=== PATIENT | female | born 1960 | race Caucasian/White ===

== ENCOUNTER 2016-05-15 14:20 | Emergency (ER) | payer SELFPAY ==
[~2016-05-15] VITALS: Ht 154.9 cm; Wt 63.5 kg
[2016-05-15 14:29] VITALS: BP 120/74; PULSE 98; RESP 16; TEMP 97.1; O2SAT 93
[2016-05-15] MEDS ORDERED: GABA300C5 PO (14:53)
[2016-05-15] MEDS ORDERED: LEVO75TA3 PO (14:53)
[2016-05-15] MEDS ORDERED: ATOR1TAB18 PO (14:53)
[2016-05-15] MEDS ORDERED: ESTR0.752 PO (14:53)
[2016-05-15] MEDS ORDERED: DULO1CAP3 PO (14:53)
--- NOTE | 2016-05-15 14:59 | PD ---
HPI Chief Complaint: Fall Time Seen by Provider: 14:55 Travel History International Travel<30 days: No Contact w/Intl Traveler<30days: No Traveled to known affect area: No History of Present Illness HPI 55-year-old female that presents to the ED for evaluation of possible injury to the right arm. Patient/suffer a CVA years ago and she has deficits including communication as well as right arm weakness as well as right leg weakness. She cannot move the arm at all. She does have some trouble walking but she is able to ambulate. 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 They're hoping that the symptoms will go away but she does have some significant bruising and swelling noted on the right arm. Patient complains of pain to the humerus, elbow, forearm. She denies any numbness or weakness that is new. Of note patient cannot move the arm already. She states having some discomfort. She denies any blood thinners. No head injury. No other injuries reported. No pain anywhere else. Allergies to codeine. Pain is moderate as she cannot give me a number secondary to her speech impediment secondary to her CVA. PFSH Past Medical History Depression: Yes High Cholesterol: Yes Cerebrovascular Accident: Yes Diminished Hearing: No Thyroid Disease: Yes Influenza Vaccination: No ?: Not Past Surgical History Hysterectomy: Yes Neurologic Surgery: Yes (BACK) Social History Alcohol Use: No Tobacco Use: Yes (1 PPD) Allergies-Medications (Allergen,Severity, Reaction): Coded Allergies: Codeine (Verified Adverse Reaction, Mild, ITCHING, 05/15/16) Reported Meds & Prescriptions Reported Meds & Active Scripts Active Lortab (Hydrocodone-Acetaminophen) 5-325 Mg Tab 1 Tab PO Q6H PRN Reported Atorvastatin (Atorvastatin Calcium) 80 Mg Tab 80 Mg PO HS Gabapentin 300 Mg Cap 300 Mg PO DAILY Duloxetine DR (Duloxetine HCl) 60 Mg Capdr 60 Mg PO DAILY Levothyroxine (Levothyroxine Sodium) 75 Mcg Tab 75 Mcg PO DAILY Estropipate 0.75 Mg Tab 0.75 Mg PO DAILY Review of Systems Except as stated in HPI: all other systems reviewed are Neg Physical Exam Narrative GENERAL: SKIN: Warm and dry. HEAD: Atraumatic. Normocephalic. EYES: Pupils equal and round. No scleral icterus. No injection or drainage. ENT: No nasal bleeding or discharge. Mucous membranes pink and moist. NECK: Trachea midline. No JVD. CARDIOVASCULAR: Regular rate and rhythm. RESPIRATORY: No accessory muscle use. Clear to auscultation. Breath sounds equal bilaterally. GASTROINTESTINAL: Abdomen soft, non-tender, nondistended. Hepatic and splenic margins not palpable. MUSCULOSKELETAL: Extremities without clubbing, cyanosis, or edema. No obvious deformities. Patient has pain and swelling noted on the anterior aspect of the right elbow. Patient does have swelling and bruising noted. No obvious deformity noted on the bones. Pupils pulses bilaterally. Patient does have some passive movement and pain with it but she cannot actively move it at all. She has good capillary refills of the digits. Some sensation deficits noted but this appears to be chronic. NEUROLOGICAL: Awake and alert. No obvious cranial nerve deficits. Motor grossly within normal limits. Five out of 5 muscle strength in the arms and legs. Normal speech. PSYCHIATRIC: Appropriate mood and affect; insight and judgment normal. Data Data Last Documented VS Vital Signs Date Time Temp Pulse Resp B/P Pulse Ox O2 Delivery O2 Flow Rate FiO2 05/15/16 14:29 97.1 98 16 120/74 93 Orders Forearm (2vws) (05/15/16 ) Humerus (Min 2vws) (05/15/16 14:50) Ice/Cold Pack (05/15/16 14:50) Acetamin-Hydrocod 325-5 Mg ([place] 5-325 (05/15/16 15:30) Elbow, Limited (Ap&Lat) (05/15/16 14:50) MDM Medical Decision Making Medical Screen Exam Complete: Yes Emergency Medical Condition: Yes Medical Record Reviewed: Yes Interpretation(s) X-ray of the right humerus show no sign of bony injury X-ray of the right elbow show no sign of bony injury X-ray of the right forearm show no sign of bony injury Differential Diagnosis Fracture versus sprain versus strain versus bruise versus contusion Narrative Course 55-year-old female that presents to the ED for evaluation of right arm injury. Patient was properly examined and was found to have signs and symptoms concerning for fracture. X-rays were done. X-rays showed no sign of bony injuries. Patient was reassured. Patient was given a short prescription for Lortab for pain. Told to take Tylenol or Motrin for pain. Ice or warm compresses. See ED worsening symptoms. Follow up with PCP. Diagnosis Primary Impression: Contusion of arm, right Qualified Code: S40.021A - Contusion of arm, right, initial encounter Patient Instructions: General Instructions Additional Instructions: Take medications as prescribed. Follow-up with PCP. See ED for any worsening symptoms. Do not drink or drive while taking pain medication. Apply ice or heat as needed for pain Med/Other Pt SpecificInfo: Prescription(s) given Scripts Hydrocodone-Acetaminophen (Lortab)5-325 Mg Tab1 Tab PO Q6H PRN (PAIN) #10 TAB Prov:Jorge L Lindsey MD 05/15/16 Disposition: 01 DISCHARGE HOME Condition: Stable Gonzales Gonzalez May 15, 2016 14:59
[2016-05-15] MEDS ORDERED: ACETAMINOPHEN/HYDROcodone 325 MG/5 MG TAB PO ONE (15:30)
--- NOTE | 2016-05-15 15:32 | RADHPO ---
EXAM DATE/TIME: 05/15/2016 15:10 [facility] COMPARISON: FOREARM RIGHT (2VWS), May 15, 2016, 15:03. INDICATIONS : Right elbow pain post fall 4 days ago MEDICAL HISTORY : Stroke. SURGICAL HISTORY : None. ENCOUNTER: Initial ACUITY: 4 - 6 days PAIN SCORE: 10/10 LOCATION: Right entire elbow FINDINGS: Two view examination of the right elbow demonstrates no soft tissue swelling, joint effusion, fractur e or dislocation. Bony mineralization is normal. CONCLUSION: 1. Negative examination. Tommie Barr MD on May 15, 2016 at 15:30 Board Certified Radiologist. This report was verified electronically.
--- NOTE | 2016-05-15 15:33 | RADHPO ---
EXAM DATE/TIME: 05/15/2016 15:15 [facility] COMPARISON: ELBOW RIGHT LIMITED (AP & LAT), May 15, 2016, 15:10. INDICATIONS : Right upper arm pain post fall 4 days ago MEDICAL HISTORY : Stroke. SURGICAL HISTORY : None. ENCOUNTER: Initial ACUITY: 4 - 6 days PAIN SCORE: 7/10 LOCATION: Right mid-shaft humerus FINDINGS: Two view examination of the right humerus demonstrates no evidence of fracture or dislocation. Bony mineralization is normal. The soft tissue structures are intact. CONCLUSION: 1. No acute abnormality of the humerus identified. Tommie Barr MD on May 15, 2016 at 15:31 Board Certified Radiologist. This report was verified electronically.
--- NOTE | 2016-05-15 15:38 | RADHPO ---
EXAM DATE/TIME: 05/15/2016 15:03 [facility] COMPARISON: No previous studies available for comparison. INDICATIONS : Right forearm pain post fall four days ago MEDICAL HISTORY : None. SURGICAL HISTORY : None. ENCOUNTER: Initial ACUITY: 4 - 6 days PAIN SCORE: 10/10 LOCATION: Right proximal forearm FINDINGS: The osseous structures are intact. There is some swelling of the soft tissues just distal to the elbo w. CONCLUSION: No acute fracture seen. There is soft tissue swelling as above. Tommie Barr MD on May 15, 2016 at 15:36 Board Certified Radiologist. This report was verified electronically.
[2016-05-15] MEDS ORDERED: HYDR-3533 PO (15:41)
== END 2016-05-15 16:02 | disposition home or self-care (01) ==
LOC: PHEFT 14:20
DX: S50.01XA Contusion of right elbow, initial encounter (principal); M79.631 Pain in right forearm; M79.621 Pain in right upper arm; I69.351 Hemiplegia and hemiparesis following cerebral infarction affecting right dominant side; I69.328 Other speech and language deficits following cerebral infarction; E78.00 Pure hypercholesterolemia, unspecified; F17.210 Nicotine dependence, cigarettes, uncomplicated; W19.XXXA Unspecified fall, initial encounter; Y93.9 Activity, unspecified; Y92.9 Unspecified place or not applicable
CPT/HCPCS: 73060; 73070; 73090; 99283

== ENCOUNTER 2016-06-24 13:40 | Emergency (ER) | payer OTHER ==
[~2016-06-24] VITALS: Ht 154.9 cm; Wt 59.0 kg
[~2016-06-24 13:40] MED LIST: ATOR1TAB18 PO; DULO1CAP3 PO; ESTR0.752 PO; GABA300C5 PO; HYDR-3533 PO; LEVO75TA3 PO
[2016-06-24 14:25] VITALS: BP 112/72; PULSE 86; RESP 18; TEMP 98; O2SAT 98
[2016-06-24] MEDS ORDERED: METH10TA PO (14:32)
[2016-06-24] MEDS ORDERED: OXYC-396 PO (14:32)
[2016-06-24] MEDS ORDERED: CLON1TAB PO (14:32)
[2016-06-24] MEDS ORDERED: CLON0.5T PO (14:32)
--- NOTE | 2016-06-24 15:08 | PD ---
HPI Chief Complaint: Medication Refill Request Time Seen by Provider: 14:57 Travel History International Travel<30 days: No Contact w/Intl Traveler<30days: No Traveled to known affect area: No History of Present Illness HPI 55-year-old female was brought in by family member requesting refill of pain medication including methadone and oxycodone. Patient status post CVA and back surgery on chronic pain medication. Patient recently moved to [facility] and does not have any local physician to refill her pain medication. Patient status post CVA with chronic pain on the right arm and status post back surgery on chronic pain medication. Family member reported no new injury. Family members reported no new medical problem. Patient does not vocalize any complaints. Information provided by family member. History Social History Alcohol Use: No Tobacco Use: Yes (1 PPD) Allergies-Medications (Allergen,Severity, Reaction): Coded Allergies: Codeine (Verified Adverse Reaction, Mild, ITCHING, 06/24/16) Reported Meds & Prescriptions Reported Meds & Active Scripts Active Reported Clonazepam 1 Mg Tab 1.5 Mg PO HS Clonazepam 0.5 Mg Tab 0.5 Mg PO DAILY Oxycodone (Oxycodone HCl) 20 Mg Tab 20 Mg PO Q3HR PRN Methadone (Methadone HCl) 10 Mg Tab 20 Mg PO TID Atorvastatin (Atorvastatin Calcium) 80 Mg Tab 80 Mg PO HS Gabapentin 300 Mg Cap 300 Mg PO DAILY Duloxetine DR (Duloxetine HCl) 60 Mg Capdr 60 Mg PO DAILY Levothyroxine (Levothyroxine Sodium) 75 Mcg Tab 75 Mcg PO DAILY Estropipate 0.75 Mg Tab 0.75 Mg PO DAILY Review of Systems General / Constitutional: No: Fever Eyes: No: Visual changes HENT: No: Headaches Cardiovascular: No: Chest Pain or Discomfort Respiratory: No: Shortness of Breath Gastrointestinal: No: Abdominal Pain Genitourinary: No: Dysuria Musculoskeletal: Positive: Pain Skin: No Rash Neurologic: No: Weakness Psychiatric: No: Depression Endocrine: No: Polydipsia Hematologic/Lymphatic: No: Easy Bruising Physical Exam Narrative GENERAL: Well-nourished, well-developed patient. SKIN: Warm and dry. HEAD: Normocephalic. EYES: No scleral icterus. No injection or drainage. NECK: Supple, trachea midline. No JVD or lymphadenopathy. CARDIOVASCULAR: Regular rate and rhythm without murmurs, gallops, or rubs. RESPIRATORY: Breath sounds equal bilaterally. No accessory muscle use. GASTROINTESTINAL: Abdomen soft, non-tender, nondistended. MUSCULOSKELETAL: No cyanosis, or edema. BACK: Nontender without obvious deformity. No CVA tenderness. Patient is unable to move right arm right leg secondary to previous CVA. Patient is not vocalizing anything. Data Data Last Documented VS Vital Signs Date Time Temp Pulse Resp B/P Pulse Ox O2 Delivery O2 Flow Rate FiO2 06/24/16 14:25 98.0 86 18 112/72 98 MDM Medical Screen Exam Complete: Yes Emergency Medical Condition: No Differential Diagnosis Differential diagnosis including chronic pain. Narrative Course 55-year-old female requesting refill of pain medication including methadone and oxycodone. Status post CVA and back surgery on chronic pain medication. No new emergency medical problem today. Medical screening exam completed. Patient advised to follow with local physician for refill of pain medication. Primary Impression: Chronic pain Patient Instructions: General Instructions Additional Instructions: Advised patient to follow up with local physician for refill pain medications. Med/Other Pt SpecificInfo: No Change to Meds Disposition: [facility]-ED USE ONLY Condition: Amauri Johnson MD Jun 24, 2016 15:08
== END 2016-06-24 14:58 | disposition left against medical advice (07) ==
LOC: PHED 13:40
DX: G89.29 Other chronic pain (principal); M79.601 Pain in right arm; M54.9 Dorsalgia, unspecified; F17.200 Nicotine dependence, unspecified, uncomplicated
CPT/HCPCS: 99281